=== PATIENT | female | born 1995 ===

== ENCOUNTER 2020-07-21 07:30 | Inpatient (IN) | payer BC ==
[2020-07-21] MEDS ORDERED: OXYTOCIN 30 UNITS in 0.9% NS 30 UNIT/500 ML INFUS.BAG IVPB SCH (08:45)
[2020-07-21] MEDS ORDERED: LACTATED RINGERS SOLUTION 1,000 ML IV SCH (08:45)
[2020-07-21 08:58] VITALS: BMI 37.4
[2020-07-21 09:36] LABS: BASO % 0.4 % (0-2.0); EOS % 0.7 % (0-4.5); HEMATOCRIT 36.8 % (32.4-45.2); HEMOGLOBIN 12.6 GM/dL (10.7-15.3); MCH 31.3 pg (25.7-33.7); MCHC 34.2 g/dl (32.0-36.0); MEAN CELL VOLUME 91.6 fl (80-96); MEAN PLT VOLUME 9.5 fl (7.5-11.1); MONO % 5.3 % (3.8-10.2); NEUT % 76.6 % (42.8-82.8); PLATELET COUNT 256 K/MM3 (134-434); RBC 4.02 M/mm3 (3.60-5.2); WHITE BLOOD COUNT 10.7 K/mm3 (4.0-10.0)
[2020-07-21 09:45] LABS: INR 0.88 (0.83-1.09); PROTHROMBIN TIME (PATIENT) 10.9 SEC (9.7-13.0)
[2020-07-21 09:48] LABS: ACTIVATED PTT 24.6 SECONDS (25.2-36.5)
[2020-07-21 09:58] LABS: POTASSIUM 4.3 mmol/L (3.5-5.1)
[2020-07-21 10:00] LABS: BLOOD UREA NITROGEN 10.8 mg/dL (7-18)
[2020-07-21 10:03] LABS: CREATININE 0.5 mg/dL (0.55-1.3)
[2020-07-21] MEDS ORDERED: OXYTOCIN 30 UNITS in 0.9% NS 30 UNIT/500 ML INFUS.BAG IVPB ONE (10:18)
[2020-07-21 10:54] LABS: HIV INTERPRETATION NEGATIVE (NEGATIVE)
[2020-07-21] MEDS ORDERED: PROMETHAZINE HCL 25 MG/1 ML VIAL ONE (13:50)
[2020-07-21] MEDS ORDERED: BUTORPHANOL TARTRATE 2 MG/ML VIAL ONE (13:50)
[2020-07-21] MEDS ORDERED: BUTORPHANOL TARTRATE 2 MG/ML VIAL IVPB ONE (15:43)
[2020-07-21] MEDS ORDERED: PROMETHAZINE HCL 25 MG/1 ML VIAL IVPUSH ONE ×2 (15:43→17:57)
[2020-07-21] MEDS ORDERED: DEXTROSE 5%-LACTATED RINGERS 1,000 ML IV SCH (15:45)
[2020-07-21] MEDS ORDERED: BUTORPHANOL TARTRATE 1 MG/ML VIAL IVPB ONE (17:57)
[2020-07-21] MEDS ORDERED: ELECTROLYTE-148 SOLN 500 ML IV ONE (18:09)
[2020-07-21] MEDS ORDERED: CITRIC ACID/SODIUM CITRATE 30 ML UNIT-DOSE CUP PO ONE (18:09)
[2020-07-21] MEDS ORDERED: ONDANSETRON 4 MG/2 ML VIAL IVPUSH PRN (18:51)
[2020-07-21] MEDS ORDERED: morphine SULFATE/PF 0.5 MG/ML (2cc Syringe - QUVA) EP ONE (18:51)
[2020-07-21] MEDS ORDERED: morphine SULFATE/PF 0.5 MG/ML (2cc Syringe - QUVA) ONE (19:55)
[2020-07-21] MEDS ORDERED: ceFAZolin SODIUM 1 GM VIAL ONE (19:56)
[2020-07-21] MEDS ORDERED: OXYTOCIN 10 UNITS/ML VIAL ONE (20:19)
[2020-07-21] MEDS ORDERED: KETOROLAC TROMETHAMINE 30 MG/1 ML VIAL ONE (20:27)
[2020-07-21] MEDS ORDERED: ONDANSETRON 4 MG/2 ML VIAL ONE (20:28)
[2020-07-21] MEDS ORDERED: oxyCODONE HCL 5 MG TABLET PO PRN ×2 (21:22)
[2020-07-21] MEDS ORDERED: IBUPROFEN 800 MG/8 ML IJ IVPB PRN (21:22)
[2020-07-21] MEDS ORDERED: SENNOSIDES/DOCUSATE COMBO (SENNA PLUS) TABLET (UD) PO PRN (21:22)
[2020-07-21] MEDS ORDERED: SIMETHICONE 80 MG TAB.CHEW (FP) PO PRN (21:22)
[2020-07-21] MEDS ORDERED: METHYLERGONOVINE MALEATE 0.2 MG/1 ML AMP IM PRN (21:22)
[2020-07-21] MEDS ORDERED: OXYTOCIN 20 UNITS in 0.9% NS 20 UNIT/1,000 ML INFUS.BAG IV SCH (21:30)
[2020-07-22 09:27] LABS: BASO % 0.3 % (0-2.0); EOS % 0.2 % (0-4.5); HEMOGLOBIN 10.5 GM/dL (10.7-15.3); LYMPH % 14.9 % (8-40); MCH 30.9 pg (25.7-33.7); MEAN CELL VOLUME 90.9 fl (80-96); MEAN PLT VOLUME 9.5 fl (7.5-11.1); MONO % 5.4 % (3.8-10.2); NEUT % 79.2 % (42.8-82.8); PLATELET COUNT 221 K/MM3 (134-434); RBC 3.41 M/mm3 (3.60-5.2); WHITE BLOOD COUNT 12.3 K/mm3 (4.0-10.0)
[2020-07-22] MEDS: ACETAMINOPHEN 325 MG TABLET (FP) PO PRN (12:44)
[2020-07-22] MEDS: IBUPROFEN 600 MG TABLET (FP) PO PRN (12:44)
[2020-07-22] MEDS: PRENATAL VITAMINS W/ FOLIC ACID TABLET (FP) PO SCH (12:44)
[2020-07-22] MEDS ORDERED: BISACODYL 10 MG SUPP.RECT RC PRN (21:22)
[2020-07-23] MEDS: ACETAMINOPHEN 325 MG TABLET (FP) PO PRN (02:37)
[2020-07-23] MEDS: IBUPROFEN 600 MG TABLET (FP) PO PRN (02:38)
[2020-07-23 11:00] VITALS: BP 133/87; PULSE 88; TEMP 97.9
[2020-07-23] MEDS: PRENATAL VITAMINS W/ FOLIC ACID TABLET (FP) PO SCH (11:00)
== END 2020-07-23 13:15 | disposition home or self-care (01) | DRG 788 ==
LOC: JLDR 07:30 → J3W 22:45
PROVIDERS: ADMIT Obstetrics & Gynecology; ATTEND Obstetrics & Gynecology
PROC: 10D00Z1 Extraction of Products of Conception, Low, Open Approach (ICD-10-PCS; principal; 2020-07-21)
PROC: 3E033VJ Introduction of Other Hormone into Peripheral Vein, Percutaneous Approach (ICD-10-PCS; 2020-07-21)
DX: O62.0 Primary inadequate contractions (principal); O42.02 Full-term premature rupture of membranes, onset of labor within 24 hours of rupture; O69.81X0 Labor and delivery complicated by cord around neck, without compression, not applicable or unspecified; Z3A.39 39 weeks gestation of pregnancy; Z37.0 Single live birth; Z87.891 Personal history of nicotine dependence
CPT/HCPCS: 36415; 80048; 85025; 85610; 85730; 86780; 86850; 86900; 86901; 87389; 88307-TC; C9803; U0003

== ENCOUNTER 2023-07-02 11:34 | Emergency (ER) | payer BC, OTHER ==
[2023-07-02 11:59] VITALS: RESP 18; BMI 25.0
[2023-07-02 12:59] LABS: EPI CELLS 16 /uL (0-25.1); HYALINE CASTS 6 /uL (0-3.1); PH,URINE 6.5 (5.0-8.0); URINE APPEARANCE CLEAR; URINE BACTERIA 163 /uL (0-1359); URINE BILIRUBIN NEGATIVE (NEGATIVE); URINE COLOR DK YELLOW; URINE GLUCOSE (UA) NEGATIVE (NEGATIVE); URINE KETONE 3+ (NEGATIVE); URINE LEUK ESTERASE TRACE (NEGATIVE); URINE NITRITE NEGATIVE (NEGATIVE); URINE PROTEIN TRACE (NEGATIVE); URINE RBC 1 /uL (0-23.9); URINE WBC 19 /uL (0-25.8)
[2023-07-02 13:00] LABS: HCG,QUALITATIVE URINE Positive
[2023-07-02] MEDS ORDERED: SODIUM CHLORIDE 1,000 ML IV STA (13:15)
[2023-07-02] MEDS ORDERED: METOCLOPRAMIDE HCL INJECTION 10 MG/2 ML VIAL IVPUSH ONE (13:15)
[2023-07-02] MEDS ORDERED: METOCLOPRAMIDE HCL INJECTION 10 MG/2 ML VIAL ONE (13:22)
[2023-07-02 13:56] LABS: URINE CRYSTALS PRESENT /hpf
[2023-07-02 14:05] LABS: BASO % 0.3 % (0-2.0); EOS % 0.4 % (0-4.5); HEMATOCRIT 38.5 % (32.4-45.2); HEMOGLOBIN 13.1 GM/dL (10.7-15.3); LYMPH % 23.7 % (8-40); MCH 30.6 pg (25.7-33.7); MEAN CELL VOLUME 89.9 fl (80-96); MEAN PLT VOLUME 8.3 fl (7.5-11.1); MONO % 5.7 % (3.8-10.2); NEUT % 69.9 % (42.8-82.8); PLATELET COUNT 275 10^3/uL (134-434); RBC 4.29 M/mm3 (3.60-5.2); RDW 13.7 % (11.6-15.6); WHITE BLOOD COUNT 9.5 K/mm3 (4.0-10.0)
[2023-07-02 14:10] LABS: INR 1.18 (0.83-1.09); PROTHROMBIN TIME (PATIENT) 13.7 SEC (9.7-13.0)
[2023-07-02 14:13] LABS: ACTIVATED PTT 28.5 SECONDS (25.2-36.5)
[2023-07-02 14:21] LABS: POTASSIUM 3.6 mmol/L (3.5-5.1)
[2023-07-02 14:23] LABS: ALBUMIN 3.8 g/dl (3.4-5.0); BLOOD UREA NITROGEN 6.4 mg/dL (7-18); CALCIUM 9.6 mg/dL (8.5-10.1)
[2023-07-02 14:26] LABS: CREATININE 0.4 mg/dL (0.55-1.3)
[2023-07-02 14:28] LABS: BILIRUBIN,TOTAL 0.4 mg/dL (0.2-1); TOT PROT 7.1 g/dl (6.4-8.2)
[2023-07-02 16:13] VITALS: BP 107/61; PULSE 69; TEMP 98.9
== END 2023-07-02 16:14 | disposition home or self-care (01) ==
LOC: JERFT 11:34 → JER 11:34 → JERFT 16:14
PROC: 3E033GC Introduction of Other Therapeutic Substance into Peripheral Vein, Percutaneous Approach (ICD-10-PCS; principal; 2023-07-02)
PROC: 3E0337Z Introduction of Electrolytic and Water Balance Substance into Peripheral Vein, Percutaneous Approach (ICD-10-PCS; 2023-07-02)
DX: O21.9 Vomiting of pregnancy, unspecified (principal); O26.891 Other specified pregnancy related conditions, first trimester; R10.30 Lower abdominal pain, unspecified; Z3A.09 9 weeks gestation of pregnancy
CPT/HCPCS: 36415; 76830-TC; 80053; 81003; 84702; 84703; 85025; 85610; 85730; 86850; 86900; 86901; 87086; 99284-25